=== PATIENT | female | born 1965 | race Caucasian/White ===

== ENCOUNTER 2019-02-09 11:34 | Emergency (ER) | payer SELFPAY ==
--- NOTE | 2019-02-09 12:58 | ED ---
Complex/Multi-Sys Presentation - HPI Summary HPI Summary: 53-year-old female presents with potential CO exposure today. she was in the office at 5 this morning so was exposed for 3 hours potential of co. she states she has sore throat, runny nose, headache and lightheadedness. She was tested at 18 by ems and given oxygen. She has no medical conditions. Is a smoker. Building was found to have CO. - History Of Current Complaint Chief Complaint: EDChemNuclearExpose Time Seen by Provider: 02/09/19 12:39 - Allergies/Home Medications Allergies/Adverse Reactions: Allergies Allergy/AdvReac Type Severity Reaction Status Date / Time No Known Allergies Allergy Verified 02/09/19 11:46 PMH/Surg Hx/FS Hx/Imm Hx Endocrine/Hematology History: Denies: Hx Anticoagulant Therapy Respiratory History: Denies: Hx Asthma, Hx Chronic Obstructive Pulmonary Disease (COPD) Infectious Disease History: No Infectious Disease History: Denies: Traveled Outside the [place] in Last 30 Days - Social History Substance Use Type: Reports: None Smoking Status (MU): Current Every Day Smoker Review of Systems Negative: Fever Positive: Sore Throat Positive: Shortness Of Breath Neurological: Other - dizziness All Other Systems Reviewed And Are Negative: Yes Physical Exam Triage Information Reviewed: Yes Vital Signs On Initial Exam: Initial Vitals Temp Pulse Resp BP Pulse Ox 98.9 F 84 16 143/85 96 02/09/19 11:43 02/09/19 11:43 02/09/19 11:43 02/09/19 11:43 02/09/19 11:43 Vital Signs Reviewed: Yes Appearance: Positive: Well-Appearing Skin: Positive: Warm, Dry Head/Face: Positive: Normal Head/Face Inspection Eyes: Positive: Normal, Conjunctiva Clear ENT: Positive: Pharynx normal Respiratory/Lung Sounds: Positive: Clear to Auscultation, Breath Sounds Present Cardiovascular: Positive: Normal, RRR Musculoskeletal: Positive: Normal Neurological: Positive: Normal Psychiatric: Positive: Normal Procedures - Sedation Patient Received Moderate/Deep Sedation with Procedure: No Diagnostics - Vital Signs Vital Signs Temp Pulse Resp BP Pulse Ox 02/09/19 11:43 98.9 F 84 16 143/85 96 - Laboratory Lab Statement: Any lab studies that have been ordered have been reviewed, and results considered in the medical decision making process. Re-Evaluation - Re-Evaluation First Eval Re-Evaluation Time: 15:39 Change: Improved Comment: co level now 4 Complex Multi-Symp Course/Dx Course Of Treatment: 53-year-old female presents with potential CO exposure today. she was in the office at 5 this morning so was exposed for 3 hours potential of co. she states she has sore throat, runny nose, headache and lightheadedness. She was tested at 18 by ems and given oxygen. She has no medical conditions. Is a smoker. Building was found to have CO. On exam has normal physical exam. CO level 11.4. placed on vapotherm Patient understands and agrees with plan. - Diagnoses Differential Diagnoses/HQI/PQRI: Other - co exposure Provider Diagnoses: Carbon monoxide poisoning Discharge ED - Sign-Out/Discharge Documenting (check all that apply): Patient Departure - Discharge Plan Condition: Good Disposition: HOME Patient Education Materials: Carbon Monoxide Poisoning (ED) Referrals: Richard Ford MD [Primary Care Provider] - Additional Instructions: Take tyenlol or ibuprofen every 6 hours as needed for pain Return to ED if develop any new or worsening symptoms - Billing Disposition and Condition Condition: GOOD Disposition: Home
[2019-02-09 16:16] VITALS: BP 138/82
== END 2019-02-09 15:40 | disposition home or self-care (01) ==
LOC: ED 11:34
DX: T65.891A Toxic effect of other specified substances, accidental (unintentional), initial encounter (principal); J02.9 Acute pharyngitis, unspecified; F17.210 Nicotine dependence, cigarettes, uncomplicated; Y92.89 Other specified places as the place of occurrence of the external cause; Y99.0 Civilian activity done for income or pay
CPT/HCPCS: 36415; 82375; 99282